=== PATIENT | male | born 1995 | race Caucasian/White ===

== ENCOUNTER 2019-12-17 11:26 | Inpatient (IN) | payer OTHER ==
[~2019-12-17] VITALS: Ht 175.3 cm; Wt 57.2 kg
[2019-12-17] MEDS ORDERED: MORPHINE SULFATE 4 MG/ML SYR/VIAL ONE (13:52)
[2019-12-17] MEDS ORDERED: ONDANSETRON HCL 4 MG/2 ML VIAL ONE (13:52)
[2019-12-17] MEDS ORDERED: ONDANSETRON HCL 4 MG/2 ML VIAL IV ONE (14:00)
[2019-12-17] MEDS ORDERED: MORPHINE SULFATE 4 MG/ML SYR/VIAL IV ONE (14:00)
[2019-12-17] MEDS ORDERED: NICOTINE 14 MG/24HR TOPICAL PATCH TD ONE (15:00)
[2019-12-17] MEDS: SODIUM CHLORIDE 0.9% 1,000 ML IV SCH (15:12)
[2019-12-17] MEDS ORDERED: MORPHINE SULF INJ 2 MG/ML SYRINGE 1ML IV PRN (15:15)
[2019-12-17] MEDS ORDERED: LACTULOSE 20Gm/30ML SOLN PO PRN (15:15)
[2019-12-17] MEDS ORDERED: PROMETHAZINE HCL 25 MG/ML 1ML IV PRN (15:15)
[2019-12-17] MEDS ORDERED: ACETAMINOPHEN 500 MG TAB PO PRN (15:15)
[2019-12-17] MEDS ORDERED: ALBUTEROL SULF 2.5 MG/0.5ML(0.5%) NEB SOLN NEB PRN (15:15)
[2019-12-17] MEDS ORDERED: traMADol HCL 50 MG TAB PO PRN (15:15)
[2019-12-17] MEDS ORDERED: NITROGLYCERIN 0.4 MG SL TAB SL PRN (15:15)
[2019-12-17 16:48] VITALS: BP 123/78
[2019-12-17 19:46] VITALS: BP 123/78
[2019-12-17 22:09] VITALS: BP 140/76
[2019-12-18] MEDS: SODIUM CHLORIDE 0.9% 1,000 ML IV SCH ×2 (03:11→12:55)
[2019-12-18 05:13] VITALS: BP 112/70
[2019-12-18 09:00] VITALS: BP 113/78
[2019-12-18 13:00] VITALS: BP 130/84
[2019-12-18 15:45] VITALS: BP 121/78
[2019-12-18] MEDS ORDERED: ONDANSETRON HCL 4 MG/2 ML VIAL IV PRN (17:15)
[2019-12-18] MEDS: LORazepam 0.5 MG TAB PO PRN ×2 (17:27→23:45)
[2019-12-18] MEDS ORDERED: MAGNESIUM SULFATE 1GM/100ML 100 ML IV ONE (19:00)
[2019-12-18] MEDS ORDERED: CALCIUM CHL 100MG/ML 500 MG in D5W 5% 100 ML IV ONE (19:00)
[2019-12-18 20:00] VITALS: BP 118/63
[2019-12-18 20:01] LABS: Basophils # (auto) 0 10 ^3/uL (0-0.2); Basophils % (auto) 0.6 % (0.0-2.0); Eosinophils # (auto) 0.1 10 ^3/uL (0-0.8); Eosinophils % (auto) 1.9 % (0.0-7.0); Hematocrit 42.4 % (41.0-53.0); Lymphocytes # (auto) 1.1 10 ^3/uL (0.4-5.4); Lymphocytes % (auto) 14.8 % (10.0-50.0); Mean Corpuscular Hemoglobin 31.4 pg (28.0-32.0); Mean Corpuscular Hgb Conc. 35.3 g/dL (32.0-36.0); Mean Corpuscular Volume 88.9 fL (80.0-100.0); Monocytes # (auto) 0.6 10 ^3/uL (0-1.3); Monocytes % (auto) 7.2 % (0.0-12.0); Neutrophils # (auto) 5.8 10 ^3/uL (1.6-8.6); Neutrophils % (auto) 75.5 % (37.0-80.0); Platelet Count (auto) 211 10^3/uL (140-450); Red Blood Cells 4.77 10^6/uL (4.5-5.90); Red Cell Distribution Width 13.1 % (11.8-14.3); White Blood Cell 7.7 10^3/uL (4.4-10.8)
[2019-12-18 20:16] LABS: INR 1.15 (0.9-1.15)
[2019-12-18 20:21] LABS: Calcium 8.8 mg/dL (8.5-10.1); Potassium 3.7 mmol/L (3.5-5.1)
[2019-12-18 20:27] LABS: BUN/Creatinine Ratio 14.7; Bilirubin, Total 0.5 mg/dL (0.2-1.0); Magnesium 2.3 mg/dL (1.6-2.6); Phosphorus 3.8 mg/dL (2.5-4.90); Total Protein 7.1 g/dL (6.4-8.2)
[2019-12-18] MEDS ORDERED: NICOTINE 21MG/24 HR TOPICAL PATCH TD ONE (21:30)
[2019-12-19] VITALS (8 sets, daily range): BP systolic 118–140; BP diastolic 61–82
[2019-12-19] MEDS: SODIUM CHLORIDE 0.9% 1,000 ML IV SCH ×2 (04:31→22:00)
[2019-12-19] MEDS: NICOTINE 21MG/24 HR TOPICAL PATCH TD SCH (09:51)
[2019-12-19] MEDS: LORazepam 0.5 MG TAB PO PRN (19:09)
[2019-12-20] VITALS: BP 122/85
[2019-12-20 02:14] VITALS: BP 122/85
[2019-12-20 04:00] VITALS: BP 124/76
[2019-12-20 05:07] LABS: Basophils # (auto) 0.1 10 ^3/uL (0-0.2); Basophils % (auto) 0.8 % (0.0-2.0); Eosinophils # (auto) 0.4 10 ^3/uL (0-0.8); Eosinophils % (auto) 4.5 % (0.0-7.0); Hematocrit 47.5 % (41.0-53.0); Hemoglobin 16.5 g/dL (13.5-17.5); Lymphocytes % (auto) 22.8 % (10.0-50.0); Mean Corpuscular Hgb Conc. 34.7 g/dL (32.0-36.0); Mean Corpuscular Volume 89.2 fL (80.0-100.0); Monocytes # (auto) 0.8 10 ^3/uL (0-1.3); Monocytes % (auto) 9.2 % (0.0-12.0); Neutrophils # (auto) 5.5 10 ^3/uL (1.6-8.6); Neutrophils % (auto) 62.7 % (37.0-80.0); Nucleated Red Blood Cells % 0.1 %; Platelet Count (auto) 219 10^3/uL (140-450); Red Blood Cells 5.33 10^6/uL (4.5-5.90); Red Cell Distribution Width 12.7 % (11.8-14.3); White Blood Cell 8.8 10^3/uL (4.4-10.8)
[2019-12-20 05:24] LABS: Albumin 4.3 g/dL (3.4-5.0); Calcium 9.4 mg/dL (8.5-10.1); Magnesium 2.5 mg/dL (1.6-2.6); Potassium 3.6 mmol/L (3.5-5.1)
[2019-12-20 05:29] LABS: BUN/Creatinine Ratio 12.4; Bilirubin, Total 0.8 mg/dL (0.2-1.0); INR 1.11 (0.9-1.15); Partial Thromboplastin Time 30.7 sec (23.64-32.05); Phosphorus 3.5 mg/dL (2.5-4.90); Total Protein 7.9 g/dL (6.4-8.2)
[2019-12-20] MEDS: SODIUM CHLORIDE 0.9% 1,000 ML IV SCH (05:31)
[2019-12-20 07:40] VITALS: BP 131/84
[2019-12-20] MEDS: NICOTINE 21MG/24 HR TOPICAL PATCH TD SCH (10:00)
[2019-12-20] MEDS ORDERED: ENOXAPARIN SOD 40 MG/0.4 ML SYRINGE SC SCH (10:00)
[2019-12-20 11:40] VITALS: BP 139/78
[2019-12-20 12:00] VITALS: BP 139/78
== END 2019-12-20 12:45 | disposition home or self-care (01) | DRG 201 ==
LOC: ER 11:26 → TELE 11:27 → TELE-WESTW 16:38 → DOU IN ICU 12-18 14:53
PROVIDERS: ADMIT Internal Medicine; ATTEND Internal Medicine
PROC: 0W9B30Z Drainage of Left Pleural Cavity with Drainage Device, Percutaneous Approach (ICD-10-PCS; principal; 2019-12-20)
DX: J93.11 Primary spontaneous pneumothorax (principal); R07.89 Other chest pain; G89.29 Other chronic pain; F17.210 Nicotine dependence, cigarettes, uncomplicated; Z82.49 Family history of ischemic heart disease and other diseases of the circulatory system
CPT/HCPCS: 36415; 36600; 71045; 71046; 71250; 80053; 82805; 82962; 83735; 84100; 84484; 85025; 85610; 85730; 93005; 93306; 96361; 96374; 96375; 99291; G0378; J2405; J7060

== ENCOUNTER 2020-06-21 08:51 | Inpatient (IN) | payer OTHER ==
[~2020-06-21] VITALS: Ht 167.6 cm; Wt 56.6 kg
[2020-06-21 09:37] LABS: Basophils # (auto) 0.1 10 ^3/uL (0-0.2); Basophils % (auto) 1.1 % (0.0-2.0); Eosinophils # (auto) 0.1 10 ^3/uL (0-0.8); Eosinophils % (auto) 1.7 % (0.0-7.0); Hematocrit 47.1 % (41.0-53.0); Hemoglobin 16.4 g/dL (13.5-17.5); Lymphocytes # (auto) 1.6 10 ^3/uL (0.4-5.4); Lymphocytes % (auto) 26.1 % (10.0-50.0); Mean Corpuscular Hemoglobin 30.9 pg (28.0-32.0); Mean Corpuscular Hgb Conc. 34.8 g/dL (32.0-36.0); Mean Corpuscular Volume 88.9 fL (80.0-100.0); Monocytes # (auto) 0.7 10 ^3/uL (0-1.3); Monocytes % (auto) 10.6 % (0.0-12.0); Neutrophils # (auto) 3.8 10 ^3/uL (1.6-8.6); Neutrophils % (auto) 60.5 % (37.0-80.0); Nucleated Red Blood Cells % 0.1 %; Platelet Count (auto) 261 10^3/uL (140-450); Red Cell Distribution Width 13.1 % (11.8-14.3); White Blood Cell 6.2 10^3/uL (4.4-10.8)
[2020-06-21 09:57] LABS: Albumin 4.3 g/dL (3.4-5.0); Anion Gap 5 (5-15); Blood Urea Nitrogen 17 mg/dL (7-18); Calcium 8.8 mg/dL (8.5-10.1); Carbon Dioxide 27 mmol/L (21-32); Chloride 107 mmol/L (98-107); Glucose 103 mg/dL (74-106); Magnesium 2.6 mg/dL (1.6-2.6); Potassium 3.6 mmol/L (3.5-5.1); Sodium 139 mmol/L (136-145)
[2020-06-21 10:06] LABS: Alanine Aminotransferase 23 U/L (16-61); Alkaline Phosphatase 69 U/L (45-117); Aspartate Aminotransferase 12 U/L (15-37); BUN/Creatinine Ratio 17.7; Bilirubin, Total 0.4 mg/dL (0.2-1.0); GFR African American 125 mL/min; GFR Non-African American 103 mL/min; Total Protein 7.3 g/dL (6.4-8.2)
[2020-06-21 10:14] LABS: Alcohol, Urine < 3.0 mg/dL (0-10); Amphetamine Screen, Urine NEGATIVE (NEGATIVE); Barbiturate Scree,Urine NEGATIVE (NEGATIVE); Benzodiazephine Screen, Urine NEGATIVE (NEGATIVE); Cannabinoid Screen, Urine POSITIVE (NEGATIVE); Cocaine Screen, Urine NEGATIVE (NEGATIVE); Opiate Scree,Urine NEGATIVE (NEGATIVE); Phencyclidine Screen, Urine NEGATIVE (NEGATIVE)
[2020-06-21] MEDS ORDERED: ACETAMINOPHEN 325 MG TAB PO PRN (11:15)
[2020-06-21] MEDS ORDERED: HYDROcodone-ACET 5/325MG TAB PO PRN (11:15)
[2020-06-21] MEDS ORDERED: MORPHINE SULF INJ 2 MG/ML SYRINGE 1ML IV PRN (11:15)
[2020-06-21] MEDS ORDERED: NITROGLYCERIN 0.4 MG SL TAB SL PRN (11:15)
[2020-06-21] MEDS: MORPHINE SULF INJ 2 MG/ML SYRINGE 1ML IV PRN ×2 (13:31→19:01)
[2020-06-21] MEDS: ONDANSETRON HCL 4 MG/2 ML VIAL IV PRN ×2 (13:31→19:02)
[2020-06-21 16:31] VITALS: BP 136/87
--- NOTE | 2020-06-21 16:40 | NUR ---
AT 1630 CAME ON WC FROM ER, RECEIVED PATIENT ALERT AND ORIENTED X4, NOT IN DISTRESS, CLEAR IN LT. UPPER DIMINISHED IN RT UPPER AND CLEAR BILATERAL IN LOWER LUNG LOBES, RR=18 SAT=96% IN RA, DEEP BREATHING AND COUGHING ENCOURAGED, DEMONSTRATED UNDERSTANDING, PACED RHYTHM R=80 ON TELE MONITOR, DENIED SOB AND CHEST PAIN, ABDOMEN ACTIVE IN ALL FOUR QUADRANTS, LAST BM THIS MORNING REPORTED, SKIN INTACT, RADIAL AND PEDAL PULSES PALPABLE, CAP REFILL<3 SECONDS, DENIED PAIN, HEAD OF BED ELEVATED, BED ON LOW POSITION, RAILS UP X2, CALL LIGHT ON REACH, WILL CONTINUE MONITORING, PENDING PULMONARY CONSULT, WILL CONTINUE MONITORING.
--- NOTE | 2020-06-21 17:00 | NUR ---
THIS RN NOTIFIED THE PRIMARY RN, ALINA, THAT THE PATIENT NEEDS A MRSA SWAB. ALINA PRICE AWARE AND VERBALIZED UNDERSTANDING.
--- NOTE | 2020-06-21 19:36 | NUR ---
NOT IN DISTRESS, DENIED PAIN, RESTING ON BED, HEAD OF BED ELEVATED, BED ON LOW POSITION, RAILS UP X2, CALL LIGHT ON REACH, REPORT WAS GIVEN TO THE SHOW DESIGN SUPERVISOR RN.
[2020-06-21 21:34] VITALS: BP 155/88
[2020-06-22 05:00] VITALS: BP 103/51
[2020-06-22 06:12] LABS: INR 1.12 (0.9-1.15)
--- NOTE | 2020-06-22 06:14 | NUR ---
PT RESTED WELL THROUGHOUT THE NIGHT;NO C/O PAIN;WILL CONTINUE TO MONITOR.
[2020-06-22 06:24] LABS: Potassium 3.9 mmol/L (3.5-5.1)
[2020-06-22 06:27] LABS: Basophils # (auto) 0 10 ^3/uL (0-0.2); Basophils % (auto) 0.7 % (0.0-2.0); Eosinophils # (auto) 0.2 10 ^3/uL (0-0.8); Eosinophils % (auto) 2.2 % (0.0-7.0); Hematocrit 44.7 % (41.0-53.0); Hemoglobin 15.7 g/dL (13.5-17.5); Lymphocytes # (auto) 1.8 10 ^3/uL (0.4-5.4); Lymphocytes % (auto) 25.3 % (10.0-50.0); Mean Corpuscular Hemoglobin 31.6 pg (28.0-32.0); Mean Corpuscular Hgb Conc. 35.1 g/dL (32.0-36.0); Mean Corpuscular Volume 90.1 fL (80.0-100.0); Monocytes # (auto) 0.6 10 ^3/uL (0-1.3); Monocytes % (auto) 9.1 % (0.0-12.0); Neutrophils # (auto) 4.5 10 ^3/uL (1.6-8.6); Neutrophils % (auto) 62.7 % (37.0-80.0); Nucleated Red Blood Cells % 0.1 %; Platelet Count (auto) 224 10^3/uL (140-450); Red Blood Cells 4.97 10^6/uL (4.5-5.90); Red Cell Distribution Width 13.3 % (11.8-14.3); White Blood Cell 7.2 10^3/uL (4.4-10.8)
[2020-06-22 06:30] LABS: BUN/Creatinine Ratio 14.6; Calcium 8.9 mg/dL (8.5-10.1)
--- NOTE | 2020-06-22 07:30 | NUR ---
Opening Note Received report from bakery sales clerk RN. Patient is awake, alert and oriented x4. No signs or symptoms of distress noted at this time. Patient is on room air, respirations even and unlabored. Patient denies pain or shortness of breath at this time. Reviewed plan of care with patient, patient verbalized understanding. Bed in low and locked position, call light within reach. Will continue to monitor Q1 hour and PRN.
[2020-06-22 09:00] VITALS: BP 99/58
[2020-06-22 13:00] VITALS: BP 124/81
--- NOTE | 2020-06-22 13:43 | NUR ---
Dr. Esquivel at bedside MD at bedside discussing plan of care with patient and this RN. New orders received. Will continue to monitor Q1 hour and PRN.
--- NOTE | 2020-06-22 16:00 | NUR ---
Incentive Spirometer Patient provided with incentive spirometer, and educated on use. Patient performed return demonstration and verbalized understanding. Will continue to monitor Q1 hour and PRN.
[2020-06-22 16:26] VITALS: BP 139/97
--- NOTE | 2020-06-22 18:07 | NUR ---
Dr. Montiel at bedside MD at bedside discussing plan of care with patient and this RN. Will continue to monitor Q1 hour and PRN.
--- NOTE | 2020-06-22 18:25 | NUR ---
Patient ambulated Patient ambulated around the unit on room air, with pulse oximeter. Patient oxygen saturation 97-98%. Patient tolerated well, denies pain or shortness of breath at this time. Will continue to monitor Q1 hour and PRN.
[2020-06-22] MEDS: ALBUTEROL SULF 2.5 MG/0.5ML(0.5%) NEB SOLN NEB SCH (18:51)
--- NOTE | 2020-06-22 19:05 | NUR ---
Closing Note Report given to assistant shift supervisor RN. No signs or symptoms of distress noted at this time.
--- NOTE | 2020-06-22 19:20 | NUR ---
Opening Shift Note Assumed care of patient after receiving report from ALBERT Rosales. Patient is awake and alert with no S/S of distress/SOB or pain. Call light within reach, bed in lowest locked position x2 side rails, HOB semi fowlers. Instructed on POC and to call for assist PRN, will continue to monitor for changes Q1hr and PRN.
--- NOTE | 2020-06-22 19:50 | NUR ---
Patient ambulated around nurses station and in hallways. Gait is even and steady. Patient tolerating ambulating on RA. Patient back in bed sating at 100% on RA with no s/s of distress or SOB.
[2020-06-22 22:00] VITALS: BP 133/74
[2020-06-22 23:58] VITALS: BP 133/74
[2020-06-23] MEDS: ALBUTEROL SULF 2.5 MG/0.5ML(0.5%) NEB SOLN NEB SCH ×2 (00:07→10:30)
--- NOTE | 2020-06-23 00:27 | NUR ---
IV DC'd from right AC. Patient had complained of irritation to site. Slight redness above site noted. No swelling noted.
[2020-06-23 05:00] VITALS: BP 109/58
[2020-06-23 08:00] VITALS: BP 139/81
--- NOTE | 2020-06-23 08:00 | NUR ---
Opening Shift Note Assumed care of patient, awake and alert and eating breakfast upon entering the room. No S/S of distress/SOB or complaints of pain at this time. Tobacco products noted at bedside, patient offered a nicotine patch but declined. Instructed on POC and all questions were addressed at this time. Patient verbalized understanding. Instructed to call for assist PRN. Bed is in lowest position and the call light is within reach of the patient. Will continue to monitor for changes Q1hr and PRN.
--- NOTE | 2020-06-23 08:48 | NUR ---
Patient off the floor for X-ray Patient transported off the floor to radiology for a chest X-ray
[2020-06-23 09:00] VITALS: BP 139/81
--- NOTE | 2020-06-23 11:06 | NUR ---
Patient discharged off unit Patient walked off the unit, no S/S of respiratory distress or discomfort. Tele monitor returned to the ICU.
== END 2020-06-23 11:00 | disposition home or self-care (01) | DRG 199 ==
LOC: ER 08:51 → TELE 08:52 → TELE-WESTW 16:16
PROVIDERS: ADMIT Nurse Practitioner Family; ATTEND Internal Medicine
DX: J93.9 Pneumothorax, unspecified (principal); J96.00 Acute respiratory failure, unspecified whether with hypoxia or hypercapnia; Z87.891 Personal history of nicotine dependence; F12.10 Cannabis abuse, uncomplicated; F14.10 Cocaine abuse, uncomplicated; Z82.49 Family history of ischemic heart disease and other diseases of the circulatory system
CPT/HCPCS: 36415; 71045; 71046; 71250; 80048; 80053; 80307; 83735; 84484; 85025; 85610; 87081; 93005; 94640; G0378; J2405